=== PATIENT | female | born 1940 | race Caucasian/White ===

== ENCOUNTER → 2017-11-27 | Outpatient (CLI) | payer MEDICARE, OTHER ==
[~2017-11-27] MED LIST: ATEN100T93 PO; EST3 PO; ESTR1 PV; HYDR12.561 PO; LEVO50TA80 PO
--- NOTE | 2017-11-27 11:40 | RADIOLOGY IMAGING REPORT ---
[place] [facility] [place] NAME: JEANNIE ELI : [id number] MR: [id number] V: [id number] EXAM DATE: [id number] ORDERING PHYSICIAN: SENIA ROBBINS TECHNOLOGIST: Yanna Joseph PROCEDURE:BILATERAL DIGITAL SCREENING MAMMOGRAM WITH CAD ASSISTED INTERPRETATION & 3D TOMOSYNTHESIS COMPARISON:Prior mammograms 11/04/16, 09/13/15, 01/09/15, 01/02/15, 01/12/14, 01/11/13. INDICATIONS:SCREENING FINDINGS: There is predominant fatty replacement throughout the breasts. The parenchymal pattern has remained stable allowing for difference in mammographic technique & patient positioning. There is no evidence of malignant appearing mass, malignant appearing calcifications or other secondary sign of malignancy in either breast. DIAGNOSTIC CATEGORY 1--NEGATIVE. RECOMMENDATIONS: ROUTINE MAMMOGRAM AND CLINICAL EVALUATION. IMPRESSION: BIRADS 1: Negative. No significant abnormality is seen. Dictated by: Liv Solis M.D. on 11/27/2017 at 10:51 Transcribed by: MILENA on 11/27/2017 at 10:57 Approved by: Liv Solis M.D. on 11/27/2017 at 11:39 [facility]
== END ==
LOC: MAMO 03:39
PROVIDERS: ATTEND Nurse Practitioner Family
DX: Z12.31 Encounter for screening mammogram for malignant neoplasm of breast (principal); Z85.3 Personal history of malignant neoplasm of breast
CPT/HCPCS: 77063; 77067

== ENCOUNTER 2018-05-01 09:46 | Emergency (ER) | payer MEDICARE, OTHER ==
--- NOTE | 2018-05-01 10:03 | ER Report ---
History and Physical Time Seen By MD: 10:03 Hx. of Stated Complaint: Pt. woke up at 5:00am to go to the bathroom, and her right knee was fine. Then while laying in bed, her right knee started hurting. When she got up at 8:00am she could not bend her right knee or weight bear. Hx of right total knee replacement in 2012. Right knee swollen on observation. HPI/ROS CHIEF COMPLAINT: Right knee swelling HISTORY OF PRESENT ILLNESS: Patient is a 78-year-old female here with complaints of right knee pain and swelling starting this morning after going to the [facility]. Patient had a total knee replacement in that knee. Denies significant injury to the site. There is no significant overlying erythema. Neurovascularly intact distal to the site of maximum tenderness. REVIEW OF SYSTEMS: Constitutional: No fever, no chills. Musculoskeletal: Right knee pain and edema Skin: No overlying erythema Neurological: Vascular intact distal to the site of pain Allergies: Coded Allergies: metronidazole (Verified Allergy, Intermediate, Hives, 05/01/18) Home Meds Reported Medications Levothyroxine Sodium (Synthroid) 50 Mcg Tablet, 50 MCG PO QDAY, 0 Refills 11/19/08 Hydrochlorothiazide (Hydrochlorothiazide) 12.5 Mg Tablet, 12.5 MG PO, 0 Refills 11/19/08 Atenolol (Atenolol) 100 Mg Tablet, 100 MG PO, 0 Refills 11/19/08 Discontinued Reported Medications Estradiol (Vagifem 25 Mcg) 25 Mcg Tab, 25 MCG PV, 0 Refills 11/19/08 Estrogens Conjugated (Premarin) 0.3 Mg Tablet, 0.3 MG PO QDAY, 0 Refills 11/19/08 Smoking Status: Former Smoker Hx Substance Use Disorder: No Hx Alcohol Use: Yes (glass of wine with dinner) Constitutional Vital Sign - Last 24 Hours 05/01/18 05/01/18 05/01/18 05/01/18 09:52 09:52 09:56 10:00 Temp 97.7 Pulse 59 58 Resp 16 B/P (MAP) 144/74 (97) 144/74 127/63 (84) Pulse Ox 93 92 O2 Delivery Room Air 05/01/18 05/01/18 05/01/18 05/01/18 10:01 10:06 10:11 10:16 Pulse 57 60 60 61 Pulse Ox 93 93 92 92 05/01/18 05/01/18 05/01/18 05/01/18 10:21 10:26 10:31 10:36 Pulse 65 59 61 60 Pulse Ox 79 93 90 91 05/01/18 05/01/18 05/01/18 05/01/18 10:41 10:46 10:51 10:56 Pulse 59 61 58 59 Pulse Ox 91 90 89 90 05/01/18 05/01/18 05/01/18 05/01/18 11:00 11:01 11:06 11:11 Pulse 58 58 B/P (MAP) 120/68 (85) Pulse Ox 90 88 91 05/01/18 05/01/18 05/01/18 05/01/18 11:16 11:21 11:26 11:31 Pulse 60 56 62 Pulse Ox 89 90 92 92 Physical Exam General Appearance: The patient is alert, has no immediate need for airway protection and no signs of toxicity. No acute distress Neurological: No focal neurological findings Skin: Warm and dry, no rashes. Musculoskeletal: Moderate tenderness of the right knee on palpation.] [ ] DIFFERENTIAL DIAGNOSIS: After history and physical exam differential diagnosis was considered for hemarthrosis, gout, pseudogout, septic arthritis Medical Decision Making EKG/Imaging Imaging Location: [facility] [place] Patient: Nessa Magallanes : 1940 Visit/Account:[id number] Date of Sevice: 05/01/2018 KNEE 3 VIEW RIGHT Indication: Swelling. Comparison: 11/19/2008 Findings: 3 views left knee were obtained. A right total knee arthroplasty is in place with patellar resurfacing. No fracture is seen. Components are appropriately aligned. There is a large knee joint effusion seen on the lateral projection. Atherosclerosis noted within the posterior soft tissues. IMPRESSION: 1. Large right knee joint effusion. 2. Right total knee arthroplasty in appropriate alignment. ED Course/Re-evaluation ED Course Patient is a 78-year-old female here with acute onset of right knee swelling with large effusion. Proximally 75 mL of taz blood was aspirated from the knee giving significant relief of symptoms. Patient was diagnosed with hemarthrosis. Cj wrap was applied to reduce reaccumulation. Recommend orthopedic follow-up. Procedure Arthrocentesis was performed on the right knee. Approximately 4 mL of 1% lidocaine with epinephrine was administered to the medial aspect of the knee. An 18-gauge needle was introduced into the joint space and approximately 75 mL of taz blood was aspirated. Patient tolerated the procedure well. Procedure was performed under sterile conditions. Decision to Disposition Date: May 01, 2018 Decision to Disposition Time: 11:42 Depart Departure Latest Vital Signs Vital Signs Date Time Temp Pulse Resp B/P (MAP) Pulse Ox O2 Delivery O2 Flow Rate FiO2 05/01/18 11:31 62 92 05/01/18 11:00 120/68 (85) 05/01/18 09:52 97.7 16 Room Air Impression: Primary Impression: Hemarthrosis Condition: Improved Disposition: HOME OR SELF-CARE Referrals: SENIA ROBBINS (PCP) Patient Instructions: Knee Pain (ED) Additional Instructions: Please rest, ice, use NSAIDs or acetaminophen as needed for pain control. Please keep your Cj wrap in place for compression. You were found to have blood in the joint space of the right knee. Please return if you develop worsening pain, fevers, inability to bear weight. SATHISH SARKAR DO May 01, 2018 10:03
[2018-05-01] MEDS ORDERED: ACETAMINOPHEN 500 MG TAB PO ONE (10:10)
[2018-05-01 11:00] VITALS: BP 120/68
--- NOTE | 2018-05-01 12:59 | RADIOLOGY IMAGING REPORT ---
FACILITY: [facility] [place] PATIENT NAME: Nessa Magallanes : 1940 MR: [id number] V: [id number] EXAM DATE: ORDERING PHYSICIAN: SATHISH SARKAR TECHNOLOGIST: Location: [facility] Patient: Nessa Magallanes : 1940 Visit/Account:[id number] Date of Sevice: 05/01/2018 KNEE 3 VIEW RIGHT Indication: Swelling. Comparison: 11/19/2008 Findings: 3 views left knee were obtained. A right total knee arthroplasty is in place with patellar resurfacing. No fracture is seen. Component s are appropriately aligned. There is a large knee joint effusion seen on the lateral projection. Atherosclerosis noted within the posterior soft tissues. IMPRESSION: 1. Large right knee joint effusion. 2. Right total knee arthroplasty in appropriate alignment. Report Dictated By: Trent Devine at 05/01/2018 12:52 PM Report E-Signed By: Trent Devine at 05/01/2018 12:55 PM WSN:[id number]
== END 2018-05-01 11:57 | disposition home or self-care (01) ==
LOC: ER 10:12
DX: M25.061 Hemarthrosis, right knee (principal)
CPT/HCPCS: 20610; 73562; 99283; A9270